=== PATIENT | female | born 1950 | race Caucasian/White ===

== ENCOUNTER → 2016-11-29 | Outpatient (CLI) | payer OTHER ==
--- NOTE | 2016-12-05 21:02 | DIAGNOSTIC IMAGING REPORT ---
REFERRING PHYSICIAN/PROVIDER: Candie CONSULTING [employer]DOW[employer] TOE FORMER: Emelia Schreiber MD PROCEDURE: Echocardiogram TECHNICAL QUALITY: Fair INDICATION: DISSECTION OF THORACIC AORTA (s/p repair) Interpretation Summary NSR Normal LV size, wall thickness, wall motion and LV systolic function. EF is 60-65%. Stage I diastolic dysfunction. No valvular abnormalities. Normal ascending aorta dimension (3 cm) No prior echocardiogram available for comparison. Procedure: A two-dimensional transthoracic echocardiogram with color flow and Doppler was performed. The patient was in normal sinus rhythm during the exam. Left Ventricle: The left ventricle is normal in size, wall thickness, and systolic function without any focal wall motion abnormalities. Left ventricular wall motion is normal. Right Ventricle: The right ventricle is normal in size, thickness and function. There is normal right ventricular wall thickness. The right ventricular systolic function is normal. Subtle distal lateral wall of the RV dysfunction, which could be due to post-op state. Atria: The left atrial size is normal. Mitral Valve: The mitral valve leaflets appear normal. There is no evidence of stenosis, fluttering, or prolapse. There is no mitral regurgitation noted. Aortic Valve: The aortic valve is trileaflet. No aortic regurgitation is present. Tricuspid Valve: The tricuspid valve is not well visualized. There is a trace or physiologic amount of tricuspid regurgitation. Pericardium/ Pleura There is no pericardial effusion. There is no pleural effusion.
== END ==
LOC: US SRH 10:30
DX: I71.01 Dissection of thoracic aorta (principal)